=== PATIENT | female | born 1955 | race Caucasian/White ===

== ENCOUNTER → 2016-12-25 | Outpatient (CLI) | payer OTHER ==
--- NOTE | ~2016-12-25 | CT2 ---
[facility] A Service of [facility] & [facility] RADIOLOGY TEXT RESULTS PATIENT: ALVA FRY [facility] UNIT #: [id number] AGE: [address]: Mingo Calvin MD SEX: F ORDER DR: [id number] [facility] [address] [place], [place] [address] [id number] O MR#: [id number] [facility] #: [id number] NAME: ALVA FRY : 1955 SEX: F STUDY DATE/TIME: 12/25/2016 15:44 [facility] ROOM: STUDY DESCRIPTION: CT Abd and Pelv W Cont Attending Physician: Mingo Calvin M.D. Referring Physician: Mingo Calvin M.D. Ordering Physician: Mingo Calvin M.D. Primary Care Physician: Stella Dutton M.D. MEDICAL IMAGING REPORT This report is preliminary unless electronic signature is present EXAM CT of the abdomen and pelvis with contrast INDICATIONS Bilateral lower abdominal pain since December 24, 2016. Patient does have a history of diverticulitis. TECHNIQUE Axial CT images were obtained from the dome of the diaphragm through the symphysis pubis following the administration of intravenous contrast material. This CT exam was performed with one or more of the following radiation dose reduction techniques: Automatic exposure control, adjustment of mA and/or kV according to patient size, and iterative reconstruction. FINDINGS Images through the lung bases are clear, with the exception of probably some mild right basilar scarring. There is a small hiatal hernia. Proximal small bowel is within normal limits. Pancreas appears unremarkable. Calcified granulomata are seen within the spleen. Adrenal glands appear normal. Gallbladder is surgically absent. Patient may have diffuse hepatic steatosis, although this is difficult to fully assess on this contrast-enhanced study. Some low attenuation seen near the falciform ligament may reflect some additional fatty infiltration. Kidneys appear unremarkable. No free fluid or adenopathy is seen within the abdomen. Patient's appendix is visualized and is within normal limits. There is no evidence of mechanical bowel obstruction. This patient has a thick-walled segment of sigmoid colon with associated pericolonic soft tissue stranding. Findings are felt to be characteristic of diverticulitis, and there is a tiny collection suspected between the sigmoid colon and bladder measuring up to 1.5 x 0.9 cm favored to represent a developing abscess. The left lateral STS. [facility] A Service of [facility] RADIOLOGY TEXT RESULTS PATIENT: ALVA FRY [facility] 51 UNIT #: [id number] AGE: [address]: Mingo Calvin MD SEX: F ORDER DR: wall of the bladder is thickened likely reflecting some secondary involvement of the bladder wall. Again, this process does not appear to be resulting in any obstruction. Uterus is surgically absent. Review of bony windows does not demonstrate any aggressive osseous abnormalities. IMPRESSION 1. Thick-walled segment of sigmoid colon, characteristic of diverticulitis. There is associated pericolonic soft tissue stranding. In-between the sigmoid colon and the bladder, there does appear to be a small collection which may reflect a developing abscess measuring up to 1.5 x 0.9 cm. It is not amenable to percutaneous drainage. There is wall thickening and stranding seen along the left lateral wall of the bladder likely reflecting some secondary involvement. Findings were reviewed with Dr. Calvin following the dictation. 2. The appendix is visualized and is within normal limits. 3. Gallbladder and uterus are surgically absent. Dictated by... Luly Alexander M.D. THIS IS AN ELECTRONICALLY VERIFIED REPORT Luly Alexander M.D. at 12/26/2016 7:22 AM AFF/psc TD: 12/25/2016 23:05 JOB #: [id number] MEDICAL IMAGING REPORT Page 1 of 1 COPY
[2016-12-25 14:55] LABS: CREATININE SERUM 0.7 mg/dL (0.6-1.4); GLOM FILT RATE Estimated 92.2 mL/min (>60)
== END | disposition home or self-care (01) ==
LOC: CCAT 14:10
PROVIDERS: Family Medicine
DX: R10.33 Periumbilical pain (principal); K57.32 Diverticulitis of large intestine without perforation or abscess without bleeding; Z90.49 Acquired absence of other specified parts of digestive tract; Z90.710 Acquired absence of both cervix and uterus
CPT/HCPCS: 36415; 74177; 82565; 84520; Q9967